=== PATIENT | male | born 1975 | race Two or more races ===

== ENCOUNTER 2021-08-02 09:33 | Emergency (ER) | payer MEDICAID ==
[~2021-08-02] VITALS: Ht 177.8 cm; Wt 80.0 kg
--- NOTE | 2021-08-02 10:08 | NUR ---
PT C/O VOMITING, DIARRHEA, EPIGASTRIC PAIN, CHILLS, SWEATS. SX STARTED AT 0130. NO MEDICATION FOR SX. COVID VACC X 2. NO KNOWN COVID EXPOSURE. REPORTS FREQUENT EPIGASTRIC PAIN. DENIES HX ULCER, HERNIA, GERD.
[2021-08-02] MEDS ORDERED: METF500T17 PO (10:14)
[2021-08-02] MEDS ORDERED: FAMOTIDINE 20 MG TABLET ONE (10:18)
[2021-08-02] MEDS ORDERED: MAALOX/HYOSCYAMINE/LIDOCAINE 45 ML BTL ONE (10:19)
[2021-08-02] MEDS ORDERED: ONDANSETRON ODT 4 MG ONE (10:19)
--- NOTE | 2021-08-02 10:22 | NUR ---
PEPCID, GI COCKTAIL & ZOFRAN GIVEN PER MAR
[2021-08-02] MEDS ORDERED: FAMOTIDINE 20 MG TABLET PO ONE (10:30)
[2021-08-02] MEDS ORDERED: MAALOX/HYOSCYAMINE/LIDOCAINE 45 ML BTL PO ONE (10:30)
[2021-08-02] MEDS ORDERED: ONDANSETRON ODT 4 MG PO ONE (10:30)
[2021-08-02 10:32] LABS: BASOPHILS % (AUTO) 0 % (0-1); EOSINOPHILS % (AUTO) 0 % (1-7); LYMPHOCYTES % (AUTO) 11 % (22-44); MEAN CORPUSCULAR HEMOGLOBIN 30.8 pg (27.5-34.5); MEAN CORPUSCULAR HGB CONC 33.9 g/dL (33.2-36.2); MONOCYTES % (AUTO) 5 % (2-9); NEUTROPHILS % (AUTO) 84 % (42-75); PLATELET COUNT 303 x10^3/uL (130-400); RED BLOOD COUNT 4.86 x10^6/uL (4.38-5.82); RED CELL DISTRIBUTION WIDTH 14.2 % (9.4-14.8)
[2021-08-02 10:41] LABS: ALANINE AMINOTRANSFERASE 44 U/L (12-78); ALBUMIN 4.6 g/dL (3.4-5.0); ANION GAP 4 mmol/L (5-15); CALCIUM 9.5 mg/dL (8.5-10.1); CHLORIDE 103 mmol/L (98-107); CREATININE 1.17 mg/dL (0.7-1.3)
[2021-08-02 10:43] LABS: ALKALINE PHOSPHATASE 91 U/L (45-117); BILIRUBIN,TOTAL 0.5 mg/dL (0.2-1.0); TOTAL PROTEIN 8.7 g/dL (6.4-8.2)
[2021-08-02 11:23] VITALS: BP 127/68
--- NOTE | 2021-08-02 11:23 | NUR ---
PT DOZING ON GURNEY; EASILY AWAKENED. DENIES PAIN. SPOUSE AT BS.
--- NOTE | 2021-08-02 11:25 | NUR ---
PO CHALLENGE INITIATED W/ 8oz WATER
--- NOTE | 2021-08-02 12:07 | NUR ---
Written [place] discharge instructions discussed w/ pt and his spouse; questions answered; understanding verbalized. Pt ambulatory to DC desk w/ steady gait.
== END 2021-08-02 12:11 | disposition home or self-care (01) ==
LOC: ED 12:00
DX: K52.9 Noninfective gastroenteritis and colitis, unspecified (principal); R00.1 Bradycardia, unspecified
CPT/HCPCS: 36415; 80053; 83690; 85025; 93005; 99284; Q0162